=== PATIENT | male | born 1985 | race Hispanic/Latino ===

== ENCOUNTER 2024-06-03 09:15 | Emergency (ER) | payer SELFPAY ==
[~2024-06-03] VITALS: Ht 167.6 cm; Wt 101.6 kg
[~2024-06-03 09:15] MED LIST: TAMIFLU75 MG PO
[2024-06-03] MEDS ORDERED: PREDNISONE20 MG PO (10:18)
[2024-06-03] MEDS ORDERED: NAPROXEN250 MG PO (10:18)
[2024-06-03] MEDS: PREDNISONE 20 MG TAB PO ONE (10:23)
[2024-06-03 10:33] VITALS: PULSE 70; RESP 18; TEMP 98.8; O2SAT 98
== END 2024-06-03 10:33 | disposition home or self-care (01) ==
LOC: FSED 09:20
DX: M25.562 Pain in left knee (principal); M76.52 Patellar tendinitis, left knee; F17.210 Nicotine dependence, cigarettes, uncomplicated
CPT/HCPCS: 73562; 99284; J7512